=== PATIENT | female | born 1970 | race African-American/Black ===

== ENCOUNTER 2022-02-23 13:58 | Emergency (ER) | payer OTHER, SELFPAY ==
[~2022-02-23 13:58] MED LIST: Iopamidol 300 61% 100 ML VIAL FS ONE
[2022-02-23] MEDS ORDERED: Ondansetron PF 4 MG/2 ML Vial ONE (15:01)
[2022-02-23] MEDS ORDERED: Famotidine/PF 20 mg/2ml Vial ONE (15:01)
[2022-02-23 15:10] LABS: #Neutrophils 7.7 10x3/uL (1.5-8.4); %Basophils 0.3 % (0.0-2.0); %Eosinophils 0.2 % (0.0-6.0); %Lymphocytes 21.9 % (18.0-47.0); %Monocytes 9.2 % (0.0-10.0); Mean Corpuscular HGB CONC 33.7 g/dL (32.0-36.0); Mean Corpuscular Hemoglobin 30.5 pg (27.0-33.0); Mean Corpuscular Volume 90.4 fl (81.6-98.3); Mean Platelet Volume 11.3 fl (7.4-10.4); Platelet Count 340 10x3/uL (150-450); RBC Distribution Width 11.9 % (11.5-14.5); Red Blood Cell (RBC) Count 4.59 10x6/uL (3.90-5.03); White Blood Cell (WBC) Count 11.3 10x3/uL (3.5-10.5)
[2022-02-23 15:27] LABS: ALT (SGPT) 27 U/L (8-55); AST (SGOT) 15 U/L (5-34); Albumin 4.2 g/dL (3.5-5.0); Alkaline Phosphatase 110 U/L (40-110); Anion Gap 16 mmol/L (10-20); BUN (Urea Nitrogen) 19 mg/dL (9.8-20.1); Bilirubin, Total 0.9 mg/dL (0.2-1.2); Calc. Creatinine Clearance 0 mL/min (70-130); Calcium 9.5 mg/dL (7.8-10.44); Carbon Dioxide 27 mmol/L (22-29); Chloride 98 mmol/L (98-107); Estimated GFR 62; Globulin 3.5 g/dL (2.4-3.5); Glucose 122 mg/dL (70-105); Lipase 13 U/L (8-78); Potassium 3.2 mmol/L (3.5-5.1); Protein, Total 7.7 g/dL (6.0-8.3); Sodium 138 mmol/L (136-145)
[2022-02-23] MEDS ORDERED: Potassium Chloride 20 MEQ TAB ONE (16:53)
== END 2022-02-23 17:00 | disposition home or self-care (01) ==
LOC: CSHERS 13:58
DX: K29.20 Alcoholic gastritis without bleeding (principal); I10 Essential (primary) hypertension; E87.6 Hypokalemia; R94.31 Abnormal electrocardiogram [ECG] [EKG]
CPT/HCPCS: 36415; 74177; 80053; 83690; 84484; 85025; 93005; 96361; 96374; 96375; J2405; Q9967; S0028